=== PATIENT | male | born 1995 | race Caucasian/White ===

== ENCOUNTER 2016-10-22 17:56 | Emergency (ER) | payer OTHER ==
[2016-10-22 18:12] VITALS: RESP 16; TEMP 98.2; O2SAT 96
--- NOTE | 2016-10-22 18:39 | EDPHY ---
H & P Time Seen by Provider: 10/22/16 18:19 HPI/ROS: CHIEF COMPLAINT: Left hip injury HISTORY OF PRESENT ILLNESS: The patient is a 21-year-old male who presents to the emergency department after falling while snowboarding. He landed directly on his left hip. He has moderate to severe pain in his left hip. It is worse with movement. He is unable to bear weight on his left hip. [place]. He is brought into the emergency department by private vehicle. He did not strike his head or sustain other injury. He has no back pain. No numbness or tingling. REVIEW OF SYSTEMS: My complete review of systems is negative except as mentioned in the HPI. Past Medical/Surgical History: Negative Past surgical history: Knee surgery and oral surgery Social history: The patient denies alcohol use today Smoking Status: Never smoked Physical Exam: Vitals noted GENERAL: Well-appearing, in no acute distress, alert. HEAD: No evidence of trauma. EYES: normal ENT: normal NECK: The C-spine is nontender. NEXUS criteria is negative (no midline tenderness, no distracting injury, no altered mental status, no recent alcohol use, no focal neurologic deficit).] RESPIRATORY: no respiratory distress. CVS: well perfused. ABDOMEN: normal. Pelvis: Stable. No tenderness palpation. Hips full range of motion. BACK: Normal to inspection, no spinal tenderness, no spinal step off, no notable bruising or abrasions. SKIN: Normal color, warm, dry. No pallor or diaphoresis. EXTREMITIES: Right upper extremity: Atraumatic. No visible signs of trauma. No tenderness palpation. Neurovascular intact distally. Left upper extremity: Atraumatic. No visible signs of trauma. No tenderness palpation. Neurovascular intact distally. Right lower extremity: Atraumatic. No visible signs of trauma. No tenderness palpation. Neurovascular intact distally. Left lower extremity: Patient's lower extremities are symmetric. There is mild left hip tenderness palpation. Neurovascular intact distally. Atraumatic, neurovascularly intact distally in all extremities, pelvis is stable , hips with full range of motion, moves all extremities freely. NEURO/PSYCH: Alert and oriented x 3, GCS 15, normal mood and affect, normal motor sensory exam. Constitutional: Initial Vital Signs Temperature (C) 36.8 C 10/22/16 18:08 Heart Rate 56 L 10/22/16 18:08 Respiratory Rate 16 10/22/16 18:08 Blood Pressure 131/49 H 10/22/16 18:08 O2 Sat (%) 96 10/22/16 18:08 O2 Delivery Mode Room Air Allergies/Adverse Reactions: No Known Allergies Allergy (Verified 10/22/16 18:07) Home Medications: Medication Instructions Recorded Hydrocodone/APAP 5/325 [[place] 1 - 2 tab PO Q4 #13 tab 10/22/16 5/325 (RX)] Medical Decision Making ED Course/Re-evaluation: In the emergency department I discussed possible etiologies with the patient. Patient will have an x-ray of his left hip. Left hip x-ray: Please refer the dictated report. No acute disease noted. I discussed the results with the patient. He was neurovascular intact distally. He was able to slightly range his left hip. He was able to stand on his left hip in the room on recheck. He was given crutches for comfort. He will follow up with Orthopedics. He is given warnings prior to leaving. I do not feel he needs CT imaging at this time. I discussed this possibility in the future if his symptoms do not improve. Differential Diagnosis: My differential includes but is not limited to hip fracture, dislocation, contusion, strain, spinal injury Departure - Departure Disposition: Home, Routine, Self-Care Clinical Impression: Contusion of hip Qualifiers: Encounter type: initial encounter Laterality: left Qualified Code(s): S70.02XA - Contusion of left hip, initial encounter Condition: Good Instructions: Hip Contusion (ED) Additional Instructions: Return with increasing pain, weakness, numbness, inability to ambulate or any other concerns. If you continue to have pain follow up with Orthopedics. He will be given a contact information. Referrals: KAR[facility] COLEMAN [Other] - As per Instructions Woodrow Buitrago MD [Medical Doctor] - 5-7 days, if not improved Prescriptions: Hydrocodone/APAP 5/325 [[place] 5/325 (RX)] 1 - 2 tab PO Q4 #13 tab
[2016-10-22 21:00] VITALS: BP 106/67; PULSE 74
== END 2016-10-22 21:00 | disposition home or self-care (01) ==
DX: S70.02XA Contusion of left hip, initial encounter (principal); V00.311A Fall from snowboard, initial encounter; Y92.89 Other specified places as the place of occurrence of the external cause; Y99.8 Other external cause status; Y93.23 Activity, snow (alpine) (downhill) skiing, snowboarding, sledding, tobogganing and snow tubing